=== PATIENT | female | born 1990 | race Caucasian/White ===

== ENCOUNTER 2018-04-27 23:54 | Emergency (ER) | payer OTHER ==
--- NOTE | 2018-04-28 01:26 | ED ---
Laceration/Wound HPI - HPI Summary HPI Summary: 27-year-old female presents with mouth laceration today. States she got hit in the face with a soccer ball. She denies any headache. No loss consciousness. No loose teeth. She states the laceration continues to bleed. Tetanus is up-to -date. Has no medical conditions. Denies any jaw pain. No vomiting. No change in vision. Has full range of motion of her jaw. - History of Current Complaint Stated Complaint: HEAD INJURY, LIP LAC Time Seen by Provider: 04/28/18 00:31 Pain Intensity: 8 - Allergy/Home Medications Allergies/Adverse Reactions: Allergies Allergy/AdvReac Type Severity Reaction Status Date / Time No Known Allergies Allergy Verified 04/28/18 00:04 Home Medications: Home Medications NK [No Home Medications Reported] 04/28/18 [History Confirmed 04/28/18] PMH/Surg Hx/FS Hx/Imm Hx Endocrine/Hematology History: Denies: Hx Anticoagulant Therapy Respiratory History: Denies: Hx Asthma Infectious Disease History: No Infectious Disease History: Denies: Traveled Outside the [place] in Last 30 Days - Family History Known Family History: Positive: Non-Contributory - Social History Alcohol Use: Occasionally Substance Use Type: Reports: None Smoking Status (MU): Never Smoked Tobacco Review of Systems Negative: Fever Negative: Chest Pain Negative: Shortness Of Breath Positive: Other - mouth laceration All Other Systems Reviewed And Are Negative: Yes Physical Exam Triage Information Reviewed: Yes Vital Signs On Initial Exam: Initial Vitals Temp Pulse Resp BP Pulse Ox 98.3 F 73 16 123/78 99 04/28/18 00:01 04/28/18 00:01 04/28/18 00:01 04/28/18 00:01 04/28/18 00:01 Vital Signs Reviewed: Yes Appearance: Positive: Well-Appearing Skin: Positive: Warm, Dry, Other - 2 1/2cm by 1/2cm laceration of right upper inner lip. not through and through Head/Face: Positive: Normal Head/Face Inspection, Other - swelling near upper lipd Eyes: Positive: Normal, EOMI, HEIDY, Conjunctiva Clear ENT: Positive: Normal ENT inspection, Pharynx normal, TMs normal Dental: Positive: Other - full ROM of jaw. no loose teeth Respiratory/Lung Sounds: Positive: Clear to Auscultation, Breath Sounds Present Cardiovascular: Positive: Normal, RRR Musculoskeletal: Positive: Normal Neurological: Positive: Normal Psychiatric: Positive: Normal Procedures - Laceration/Wound Repair 1 Location: mouth Description: Irregular Anesthesia: Local, 2.0%, Epi Length, Depth and Shape: 2.5cm x .5cm Betadine Prep?: No Irrigated w/ Saline (ccs): 100 Laceration/Wound Explored: no foreign body removed Closure: Single Layer Suture Type: Chromic Number of Sutures: 3 Layer Closure?: No Sterile Dressing Applied?: No Diagnostics - Vital Signs Vital Signs Temp Pulse Resp BP Pulse Ox 04/28/18 01:03 80 111/77 99 04/28/18 01:00 71 100 04/28/18 00:33 71 115/80 100 04/28/18 00:01 98.3 F 73 16 123/78 99 - Laboratory Lab Statement: Any lab studies that have been ordered have been reviewed, and results considered in the medical decision making process. Laceration Repair Course/Dx - Course Course Of Treatment: 27-year-old female presents with mouth laceration today. States she got hit in the face with a soccer ball. She denies any headache. No loss consciousness. No loose teeth. She states the laceration continues to bleed. Tetanus is up-to-date. Has no medical conditions. Denies any jaw pain. No vomiting. No change in vision. Has full range of motion of her jaw. On exam has 2 half centimeter by accident a laceration of the inner upper lip on the right side. area was cleaned and suture placed by Becca ALONSO with 3 sutures placed. told to keep area clean. patient understand and agrees with plan. - Differential Dx Differental Diagnoses: Abrasion, Avulsion, Laceration - Clinical Impression Provider Diagnoses: Laceration of mouth Discharge - Sign-Out/Discharge Documenting (check all that apply): Patient Departure Patient Received Moderate/Deep Sedation with Procedure: No - Discharge Plan Condition: Good Disposition: HOME Patient Education Materials: Care For Your Stitches (ED) Referrals: No Primary Care Phys,NOPCP [Primary Care Provider] - Additional Instructions: Place ice on area Take Tylenol or ibuprofen for pain as needed every 6 hours Sutures will absorb on own do not need to be removed, can clip the ends in 5 days if still present Avoid acidic foods Rinse mouth out twice a day Return to ED if develop any signs of infection or any new or worsening symptoms - Billing Disposition and Condition Condition: GOOD Disposition: Home
== END 2018-04-28 01:46 | disposition home or self-care (01) ==
LOC: ED 23:54
DX: S01.512A Laceration without foreign body of oral cavity, initial encounter (principal); W21.02XA Struck by soccer ball, initial encounter; Y93.66 Activity, soccer; Y92.9 Unspecified place or not applicable
CPT/HCPCS: 12001; 99282